=== PATIENT | female | born 1960 | race Caucasian/White ===

== ENCOUNTER → 2018-06-05 | Outpatient (CLI) | payer BC | END | disposition home or self-care (01) | LOC: RAD 13:15 | DX: J40 Bronchitis, not specified as acute or chronic (principal) ==

== ENCOUNTER → 2018-10-21 | Outpatient (CLI) | payer BC | END | disposition home or self-care (01) | LOC: RAD 15:59 | DX: M51.37 Other intervertebral disc degeneration, lumbosacral region (principal); M47.816 Spondylosis without myelopathy or radiculopathy, lumbar region; G89.29 Other chronic pain ==